=== PATIENT | female | born 1955 | race Caucasian/White ===

== ENCOUNTER 2022-02-27 07:48 | Emergency (ER) | payer MEDICARE, BC, SELFPAY ==
[2022-02-27 07:56] VITALS: BP 153/86; PULSE 70; RESP 18; TEMP 35.8; O2SAT 97; BMI 35.9
--- NOTE | 2022-02-27 08:53 | ED.GENADULT ---
HPI - General Adult General Time Seen by Provider: 08:53 Date Seen: 02/27/22 Chief complaint: Urogenital Problems, Female Stated complaint: Possible UTI Time Seen by Provider: 02/27/22 07:58 Source: patient Mode of arrival: ambulatory Limitations: no limitations History of Present Illness HPI narrative: Patient is a 66 white female who had a hysterectomy vaginally about [address] [facility], she had this done for endometrial polyps. The patient reports she recovered uneventfully this morning woke up and had dysuria dysuria to a small degree, and urinary frequency, with inability to fully empty her bladder. She believes she does have a catheter during the procedure 9 weeks ago, but has not had none recently. She has not had urinary tract infections in the past. She reports she is generally healthy. Her chart was reviewed. No flank pain, chills, rigors. Did notice some mild pinkish tinge to the urine. Related Data Home Medications Medication Instructions Recorded Confirmed lisinopril 10 mg tablet 10 mg PO DAILY 02/27/22 02/27/22 simvastatin 40 mg tablet 40 mg PO DAILY 02/27/22 02/27/22 Previous Rx's Medication Instructions Recorded nitrofurantoin 100 mg PO BID #10 cap 02/27/22 monohydrate/macrocrystals 100 mg capsule (Macrobid) Allergies Allergy/AdvReac Type Severity Reaction Status Date / Time No Known Drug Allergies Allergy Verified 02/27/22 08:00 Review of Systems Status of ROS: Reports: 6 or more systems reviewed and unremarkable except as noted in History and below PFSH PFS Social History Smoking Status: Never smoker Do you use any of these nicotine containing products: None Second hand tobacco smoke exposure: No How often do you have a drink containing alcohol: never AUDIT-C Alcohol total score: 0 Non-prescribed substance use: denies use Exam Narrative: Exam Narrative: Objective: In general patient apparent distress Abdomen is benign soft nontender No CVA tenderness Extremities show good perfusion Afebrile Const: Vital Signs, click to edit/add: Vital Signs - 24 hr 02/27/22 07:56 Temperature 96.5 F L Pulse Rate [Pulse Oximeter] 70 Respiratory Rate 18 Blood Pressure [Ri ght Upper Arm] 153/86 H Pulse Oximetry 97 Course Vital Signs Vital signs: Initial Vital Signs Temperature 96.5 F L 02/27/22 07:56 Temperature Source Temporal Artery Scan 02/27/22 07:56 Pulse Rate 70 02/27/22 07:56 Respiratory Rate 18 02/27/22 07:56 Blood Pressure 153/86 H 02/27/22 07:56 Blood Pressure Mean 108 02/27/22 07:56 Blood Pressure Position Supine 02/27/22 07:56 Pulse Oximetry 97 02/27/22 07:56 Oxygen Delivery Method 02/27/22 07:56 Vital Signs Temperature 96.5 F L 02/27/22 07:56 Pulse Rate 70 02/27/22 07:56 Respiratory Rate 18 02/27/22 07:56 Blood Pressure 153/86 H 02/27/22 07:56 Pulse Oximetry 97 02/27/22 07:56 Temperature 96.5 F L 02/27/22 07:56 Pulse Rate 70 02/27/22 07:56 Respiratory Rate 18 02/27/22 07:56 Blood Pressure 153/86 H 02/27/22 07:56 Pulse Oximetry 97 02/27/22 07:56 Medical Decision Making MDM Narrative Medical decision making narrative: The patient had hysterectomy vaginally about 9 weeks ago, likely had bladder catheterization. I think will collect a urinalysis but regardless I think a tree with antibiotics given that she has dysuria frequency inability to completely void. She has no vaginal bleeding, or evidence of postop complication. Will give her Rocephin IM, followed by Macrodantin 100 b.i.d. x7 days. She should follow up with regular doctor within the next 5-7 days as well, certainly sooner return here problems or concerns. Lab Data Labs: Lab Results 02/27/22 Range/Units 09:10 Urine Color Dark Yellow (Yellow) Urine Appearance Slightly Cloudy A (Clear) Urine pH 6.5 (5.0-8.5) Ur Specific Benson 1.025 (1.000-1.030) Urine Protein Negative (Negative) Urine Glucose (UA) Negative (Negative) Urine Ketones Negative (Negative) Urine Blood 3+ A (Negative) Urine Nitrite Negative (Negative) Urine Bilirubin Negative (Negative) Urine Urobilinogen 0.2 (0.2-1.0) Ur Leukocyte Esterase 1+ A (Negative) Urine RBC 25-50 A (0-2) Urine WBC 5-10 A (0-5) Ur Squamous Epith Cells Few (None-Few) Amorphous Sediment (None) Other Sediment (None) Urine Bacteria Few A (None) Urine Mucus (None) Discharge Plan Discharge Clinical Impression: Urinary tract infection Patient Disposition: Home, Self-Care Condition: Stable Instructions: Urinary Tract Infection in Women (ED) Activity Level: No Restrictions Discharge Diet: Regular Prescriptions: New nitrofurantoin monohyd/m-cryst [Macrobid] 100 mg capsule 100 mg PO BID Qty: 10 0RF Rx Instructions: must administer with a meal/food No Action lisinopril 10 mg tablet 10 mg PO DAILY 0RF simvastatin 40 mg tablet 40 mg PO DAILY 0RF Follow Up/Referrals: Salina Huerta MD [Primary Care Provider] - Stand Alone Forms: Quality System[employer] Info Instructions
[2022-02-27 09:24] LABS: Appearance Urine Slightly Cloudy (Clear); Bilirubin Urine Negative (Negative); Blood Urine 3+ (Negative); Glucose Urine Negative (Negative); Ketones Urine Negative (Negative); Leukocyte Esterase Urine 1+ (Negative); Nitrite Urine Negative (Negative); Protein Urine Negative (Negative); Specific Gravity Urine 1.025 (1.000-1.030); Urobilinogen Urine 0.2 (0.2-1.0); pH Urine 6.5 (5.0-8.5)
[2022-02-27 09:27] LABS: Bacteria Urine Few; Color Urine Dark Yellow (Yellow); RBC Urine 25-50 (0-2); Squamous Epithelial Cell Urine Few (None-Few)
[2022-02-27] MEDS: cefTRIAXone 500 MG VIAL IM (09:30)
== END 2022-02-27 09:36 | disposition home or self-care (01) ==
LOC: ED 09:11
PROVIDERS: Emergency Provider Family Medicine; PCP Family Medicine
DX: N39.0 Urinary tract infection, site not specified (principal)
CPT/HCPCS: 81001; 87086; 96372; 99283; 99284; J0696

== ENCOUNTER 2024-04-28 08:50 | Outpatient (CLI) | payer MEDICARE, BC, SELFPAY | END 2024-04-28 08:51 | disposition home or self-care (01) | LOC: NFLDREF 05-02 09:30 | PROVIDERS: PCP Family Medicine; Referring Provider Family Medicine; Visit Provider Nurse Practitioner Family | DX: N30.00 Acute cystitis without hematuria (principal) | CPT/HCPCS: 87086 ==

== ENCOUNTER 2025-01-18 09:53 | Outpatient (CLI) | payer MEDICARE, BC, SELFPAY | END 2025-01-18 09:54 | disposition home or self-care (01) | LOC: NFLDREF 01-21 06:45 | PROVIDERS: PCP Family Medicine; Referring Provider Family Medicine; Visit Provider Nurse Practitioner Family | DX: R30.0 Dysuria (principal); R39.15 Urgency of urination; N30.90 Cystitis, unspecified without hematuria | CPT/HCPCS: 87086 ==

== ENCOUNTER 2025-03-23 14:40 | Emergency (ER) | payer MEDICARE, BC, SELFPAY ==
--- OUTSIDE RECORDS SUMMARY | 2025-03-23 14:42 | XMS_ITS ---
Author Name Interface, [id number] lity Address [address] [address] [facility] Address [address] [place] [address] Allergies and Adverse Reactions Medication/Group Name Reaction Severity Date No known allergies Plan Date Type Value 02/01/2022 APPOINTMENT POST OP 30 MIN 01/11/2022 APPOINTMENT POST OP 30 MIN 12/31/2021 APPOINTMENT NEW PT CONSULT 3 0 MIN 12/24/2021 APPOINTMENT SURGERY 2 HR 12/24/2021 APPOINTMENT NEW PT CONSULT 3 0 MIN 11/09/2021 APPOINTMENT NEW PT CONSULT 3 0 MIN Reason for Visit POST OP 30 MIN Encounters Date Name 11/09/2021 Elevated CA 125 leve l 11/09/2021 Mass of pelvic struc ture (finding) 11/09/2021 Postmenopausal bleed ing (finding) Immunizations Date Name Route Dose Instructions Refusal Reason Stat us 05/18/2021 Flu vaccine - Adult C ompleted 11/19/20 Covid-19 vaccine ([place]) Completed Diagnostic Results Date Type Test Units Lower Limit Upper Limit Result Flag Comments Status Ordered By Specimen Source Lab Address 12/08 [facility] other lab See attache calero 12/21 [facility] other lab See attache calero Medications Date Name Route Dose Frequency Instructions Start Date End Date Status 07/25/20 21 Triamcinolone Topical Cream 0.025 % Topical 07/25/20 21 active 05/03/20 21 Simvastatin Oral Oral 40.0 mg 05/03/20 21 active 05/03/20 21 Lisinopril Oral Oral 10.0 mg 05/03/20 21 active Problems Diagnosis Status Date of Diagnosis Resolution Date Mass of pelvic structure (finding) Active Postmenopausal bleeding (finding) Active Elevated CA 125 level Active Vital Signs Date Type Value 11/09/2021 Weight 188.20 11/09/2021 Respiratory Rate 16.00 11/09/2021 Heart Beat 67.00 11/09/2021 Body Temperature 97.00 11/09/2021 BSA 1.88 11/09/2021 BMI 33.34 11/09/2021 Height 63.00 11/09/2021 Oxygen Saturation 98.00 11/09/2021 Pain Scale 0.00 11/09/2021 Intravascular Systolic 148 11/09/2021 Intravascular Diastolic 78 11/10/2021 BSA 1.88 11/10/2021 Weight 188.00 11/10/2021 Height 63.00 11/10/2021 BMI 33.30 01/11/2022 BSA 1.90 01/11/2022 BMI 34.08 01/11/2022 Height 63.00 01/11/2022 Weight 192.40 01/11/2022 Pain Scale 0.00 01/11/2022 Intravascular Systolic 124 01/11/2022 Intravascular Diastolic 76 01/11/2022 Oxygen Saturation 99.00 01/11/2022 Respiratory Rate 16.00 01/11/2022 Body Temperature 97.20 01/11/2022 Heart Beat 87.00 02/01/2022 Body Temperature 96.60 02/01/2022 Heart Beat 69.00 02/01/2022 Respiratory Rate 18.00 02/01/2022 Oxygen Saturation 99.00 02/01/2022 BSA 1.89 02/01/2022 Pain Scale 0.00 02/01/2022 Weight 190.40 02/01/2022 Height 63.00 02/01/2022 BMI 33.73 02/01/2022 Intravascular Systolic 128 02/01/2022 Intravascular Diastolic 80
--- OUTSIDE RECORDS SUMMARY | 2025-03-23 14:42 | XMS_ITS | Clinical Summary ---
Author Organization [facility] Address [address] [place] [id number] Care Team Providers Care Engineering Operator Name Role Phone Salina Huerta MD Primary Care Provider Allergies No known active allergies Medications calcium carbonate-cholecal ciferol, 600mg-200 units, (Calcium 600 + D,3,) tablet Take 1 Tablet by mouth two times daily with meals. Active simvastatin (ZOCOR) 40 mg tabletIndications: Hyperlipidemia, unspecified hyperlipidemia type Take 1 Tablet (40 mg) by mouth at bedtime. 90 Tablet 2 4 Active lisinopriL (PRINIVIL; ZESTRIL) 20 mg tabletIndications: Hypertension, unspecified type TAKE 1 TABLET BY MOUTH EVERY DAY 90 Tablet 2 5 Active triamcinolone 0.025 % creamIndications:E czema, unspecified type APPLY TOPICALLY TO AFFECTED AREA TWICE A DAY 80 g 2 5 Active Active Problems Problem Noted Date Diagnosed Date Routine adult health maintenance 05/28/2015 Overview (05/28/2015): Colonoscopy 05/2015 normal repeat in 10 years Vitamin D deficiency 12/26/2011 Syncope 04/26/2011 EKG abnormalities 04/26/[address] 04/26/2011 Unspecified essential hypertension Hyperlipidemia Immunizations Immunization Administration Dates Next Due COVID-19 vaccine (Moderna 100mcg/0.5mL) LULA VALLES 11/19/2020,10/22/2020 Hepatitis A (Adult) 06/03/2003 Influenza, IIV4 04/03/2020,04/24/2018 Influenza, IIV4 (=>6mos) MDV 05/21/2019,05/27/20 17 Influenza, Injectable, Mdck, Quadrivalent, W/preservative 05/18/2021 Pneumococcal Conj 20-valent (Prevnar 20) 023 Td (Age >=7 Years) 07/07/1995 Tdap 08/17/2018,08/06/2007 Zoster (Shingrix-RZV, recombinant) 07/05/2019, Family History Medical History Relation Name Comments Alcoholism Brother 1 Tra Other Brother 1 Tra sleep apnea Coronary artery disease Brother 3 Bill Coronary artery disease Brother 4 Bjorn Seizures Daughter Coronary artery disease Father Good Health Father Coronary artery disease Mother Diabetes Mother Heart Disease Mother Diagnosed age 75 Hypertension Mother Cancer-breast No Family History Cancer-ovarian No Family History Relation Name Status Comments Brother 1 Tra Alive Brother 2 Ceasar Alive Brother 3 Bill Alive Brother 4 Bjorn Alive Brother 5 Yuri Alive Daughter Father Maternal Grandfather (Age 70) CA D Maternal Grandmother gastric ca? Mother Paternal Grandfather alcohol ic Paternal Grandmother (Age 85) Sister Tia Alive Social History Tobacco Use Types Packs/Day Years Used Date Smoking Tobacco: Never Smokeless Tobacco: Never Tobacco Cessation:Counseling Given: Yes Alcohol Use Standard Drinks/Week Comments Yes 0 (1 standard drink = 0.6 oz pur e alcohol) 2 drinks per year PHQ-2 Answer Date Recorded PHQ-2 TOTAL SCORE 0 06/26/2023 Social Connections Answer Date Recorded Do you often feel lonely or isolated from those around you? 0 07/06/2024 Financial Resource Strain Answer Date R ecorded Difficulty of Paying Living Expenses 3 07/06/2024 Difficulty of Paying Living Expenses Not on file 07/06/2024 Food Insecurity Answer Date Recorded Do you worry your food will run out before you are able to buy more? 1 07/06/2024 Transportation Needs Answer Date Record ed Does lack of transportation keep you from medica l appointments? 1 07/06/2024 Does lack of transportation keep you from work, meetings or getting things that you need? 1 07/06/2024 Housing Stability Answer Date Recorded What is your housing situation today? 1 07/06/2024 Utilities Answer Date Recorded Do you have trouble paying f or utilities (for example, heat, electricity, water, phone)? 1 07/06/2024 Comments No Sex and Gender Information Value Date Recorded Sex Assigned at Female 04/06/2020 10:47 AM CDT Legal Sex Female 5:24 AM EXPELLER WORKER Gender Identity Female 04/06/2020 10:47 AM CDT Sexual Orientation Straight 04/06/2020 10 :47 AM CDT Occupation Industry Job Start Date Job End Date Not on file Not on file Not on file Not on file Obstetrics History Para Term AB IAB SAB Ectopic Multiple Livin g Live Births 5 3 3 0 2 0 2 0 0 3 Date Outcome GA Total Labor Labor/2nd/3rd Weight Sex Type Anes PTL Shayy A1 A5 Name Clin SAB SAB Term Term Term Comments 3 x Last Filed Vital Signs Vital Sign Reading Time Taken Comments Blood Pressure 111/74 07/11/2024 10:37 AM EXPELLER WORKER Pulse 72 07/11/2024 10:37 AM EXPELLER WORKER Temperature 36.9 C (98.5 F) 12/24/2021 6:30 PM CDT Respiratory Rate 18 12/24/2021 7:12 PM CDT Oxygen Saturation 96% 07/11/2024 10:37 AM EXPELLER WORKER Inhaled Oxygen Concentration - - Weight 85.5 kg (188 lb 9.6 oz) 07/11/2024 10:37 AM EXPELLER WORKER Height 153.7 cm (5' 0.5) 07/11/2024 10:37 AM CS T Body Mass Index 36.23 07/11/2024 10:37 AM EXPELLER WORKER Plan of Treatment Health Maintenance Due Date Last Done Comments COVID-19 vaccine series ( season) 2024 11/19/2020, 10/22/2020 Depression screening for age 12+ 06/26/2024 06/26/2023, 06/20/2022, 04/07/2020, Additional history exists Influenza Vaccine (#1) 2025 , 04/03/2020, 05/21/2019, Additional history exists Colonoscopy through age 75 05/28/202505/28, 05/28/2015, 06/03/2011, Additional history exists Mammogram for age 45-75 05/29/2025 05/29/20 24, 05/09/2023, 05/04/2022, Additional history exists BMI (ht and wt on same day) for age 18+ 07/11/2025 07/11/2024, 12/20/2023, 06/26/2023, Additional history exists Medicare Wellness for age 65+ 07/12/2025 07/11/2024, 06/26/2023, 06/20/2022 Tetanus booster 08/17/2028 08/17/2018, 07/09, 07/07/1995 Lipids for age 45-75 07/11/2029 07/11/2024, 06/26/2023, 07/19/2022, Additional history exists RSV vaccine for adults or (1 - 1-dose 75+ series) 2031 Zoster (shingles) series for age 50+ Completed 07/05/2019, 03/14/2019 Hepatitis C screening for age 18-79 Completed 04/07/2020 DEXA/DXA scan for age 65+ Completed 07/19/2022 Pneumococcal series for age 50+ Completed 06/26/2023 Hepatitis B series for 19+ Aged Out N o longer eligible based on patient's age to complete this topic Procedures Procedure Name Priority Date/Time Associated Diagnosis Comments LIPID PANEL W REFLEX MEASURED LDL Routine 07/11/2024 11:17 AM EXPELLER WORKER Hyperlipidemia, unspecified hyperlipidemia type XR MAMMO BILAT SCREENING Routine 05/29/2024 4:02 PM CDT Encounter for screening mammogram for malignant neoplasm of breast XR DXA BONE DENSITY 2 SITES AXIAL Routine 07/19/2022 10:50 AM EXPELLER WORKER Menopause ANTI HCV Routine 04/07/2020 3:05 PM CDT Need for hepatitis C screening test from Last 3 Months or Most Recently Relevant to Health Maintenance Results * LIPID PANEL W REFLEX MEASURED LDL (07/11/2024 11:17 AM EXPELLER WORKER) CHOLESTEROL, TOTAL 169 <200 mg/dL [facility] HDL CHOLESTEROL 76 > OR = 50 mg/dL [facility] TRIGLYCERIDES 144 <150 mg/dL [facility] LDL-CHOLESTEROL 70 mg/dL (calc) [facility] Comment: Reference range: <100 Desirable range <100 mg/dL for primary prevention; <70 mg/dL for patients with CHD or diabetic patients with > or = 2 CHD risk factors. LDL-C is now calculated using the Luis Felipe calculation, which is a validated novel method providing better accuracy than the Friedewald equation in the estimation of LDL-C. Ean SS et al. JASPREET. 2013;310(19): 0838-1780 (http://education.Symetis/faq/FEV540) CHOL/HDLC RATIO 2.2 <5.0 (calc) [facility] NON HDL CHOLESTEROL 93 <130 mg/dL (calc) [facility] Comment: For patients with diabetes plus 1 major ASCVD risk factor, treating to a non-HDL-C goal of <100 mg/dL (LDL-C of <70 mg/dL) is considered a therapeutic option. Blood BLOOD SPECIMEN / Unknown 07/11/2024 11:17 AM EXPELLER WORKER 07/11/2024 11:18 AM EXPELLER WORKER Salina Huerta MD CHEMISTRY Final R esult [facility] [address] [place] [address], [facility] [address] [place] [address] * XR MAMMO BILAT SCREENING (05/29/2024 4:02 PM CDT) Anatomical Region Laterality Modality BREASTS, Breast Left, Breast Right Bilateral Mammography Impressions 05/29/2024 4:05 PM CDT There is no radiographic evidence for malignancy. Recommend annual mammograms. MAMMOGRAM ASSESSMENT: ACR 1 Negative PATIENTS: You will also receive a letter with your examination results in an easy to read format. If you have questions about your results, please contact your referring provider. Narrative 05/29/2024 4:05 PM CDT For Patients: As a result of the Cures Act, medical imaging exams and procedure reports are released immediately into your electronic medical record. You may view this report before your referring provider. If you have questions, please contact your health care provider. XR MAMMO BILAT SCREENING [[id number]] CLINICAL HISTORY: This is an asymptomatic 68 y.o. patient. INDICATION FOR EXAM: Mammogram Screening. TECHNIQUE: CC & MLO views were obtained. This study was evaluated with the assistance of Computer-Aided Detection. COMPARISON FILM: Yes 05/09/23 [facility] 05/04/22 [facility] FINDINGS: The breasts are almost entirely fatty. There are no dominant masses, suspicious micro calcifications or areas of architectural distortion. us Salina Huerta MD MAMMO Final R esult * (ABNORMAL) XR DXA BONE DENSITY 2 SITES AXIAL [27053.1] (07/19/2022 10:50 AM EXPELLER WORKER) Anatomical Region Laterality Modality Spine, HIPS, HIPL, HIPR Other Impressions 07/20/2022 4:00 PM EXPELLER WORKER Osteopenia. RECOMMENDATIONS: The National Osteoporosis Foundation recommends pharmacologic treatment for patients with T-scores of -2.5 or less, patients with prior history of fragility fractures, or patients with 10-year probability of greater than 3% at hips or greater than 20% of suffering major osteoporotic fractures. Recommend continued optimization of calcium and vitamin D intake through dietary means and/or supplementation and regular exercise. Repeat scan recommended in 3-5 years. Negin Keene PA-C [facility] 07/20/2022 Narrative 07/20/2022 4:00 PM EXPELLER WORKER For Patients: Results are automatically released to your [email or web address] ([employer]) account once available, in compliance with federal regulations. This means that you may see your results before your provider has had a chance to review them. Please allow 2-3 business days for your provider to comment on the results. XR DXA Bone Mineral Density (BMD) EXAM LOCATION: [address] [address] PATIENT NAME: Mahnaz Keita DATE OF : 1955 EXAM DATE: 07/19/2022 REQUESTING PROVIDER: Salina Huerta MD GENDER AT : female HEIGHT: 5' 0.71 (06/20/2022) WEIGHT: 193 lb 12.8 oz (06/20/2022) MENOPAUSAL STATUS: Postmenopausal RACE/ETHNICITY: White RISK FACTORS: White Race CURRENT MEDICATION FOR BONE LOSS: NONE INDICATION: Initial scan for screening and Post-Menopause COMPARISON DATE(S): None DXA scans are compared to prior studies for a patient only when the two (or more) studies were performed on the same scanner. It is not possible to compare data generated on one scanner to data from another because there are not standards in DXA equipment. This applies even if the two scanners are made by the same set key driver. PROCEDURE: Dual-energy x-ray absorptiometry performed with routine technique. Reporting is completed in the form of a T-score. The T-score represents the standard deviation from peak bone mass based on young healthy adult. A Z-score is used for diagnosis in premenopausal women, and for men under the age of 50. FINDINGS: RESULT LUMBAR SPINE L2 - L4 BMD: 1.356 g/cm2 T-Score: + 1.1 Z-Score: + 2.0 Change from prior: None RESULTS FEMUR Left femoral neck BMD: 0.905 g/cm2 T-Score: - 1.0 Z-Score: + 0.1 Change from prior: None Right femoral neck BMD: 0.891 g/cm2 T-Score: - 1.1 Z-Score: + 0.0 Change from prior: None Left hip BMD: 1.121 g/cm2 T-Score: + 0.9 Z-Score: + 1.6 Change from prior: None Right hip BMD: 1.080 g/cm2 T-Score: + 0.6 Z-Score: + 1.3 Change from prior: None WHO criteria: Normal: T-score at or above -1 SD Osteopenia: T-score between -1.1 and -2.4 SD Osteoporosis: T-score at or below -2.5 SD FRAX RISK CALCULATION (USED FOR OSTEOPENIA ONLY): 10-year probability of major osteoporotic fracture: 7.5%. 10-year probability of hip fracture: 0.6%. us Salina Huerta MD DEXA Final R esult * ANTI HCV (04/07/2020 3:05 PM CDT) HEPATITIS C ANTIBODY Non-React josiane Non-React josiane 04/07/2020 9:10 PM CDT [facility] Comment:Antibodies to HCV no t detected; does not exclude the possibility of exposure to HCV. Blood BLOOD SPECIMEN / Unknown Venipuncture / Unknown 04/07/2020 3:05 PM CDT 04/07/2020 3:05 PM CDT us Salina Huerta MD SEND OUTS Final R esult [facility] [address] [place] [address], from Last 3 Months or Most Recently Relevant to Health Maintenance Insurance MEDICARE PART B HB ONLY MEDICARE PART A HB ONLY [employer] PB ONLY [phone] (Work) [id number] [place] [id number] [facility] [employer] INS Advance Directives Documents on File Type Date Recorded Patient Presto Log Operator Expl anation Healthcare Directive 12/24/2021 10:54 AM Healthcare Directive 04/05/2021 7:24 AM * Full Code (Latest Code Status on File) Date Activated Date Inactivated Comments 04/26/2011 5:22 PM 04/27/2011 8:34 PM Care Teams Engineering Operator Relationship Specialty Start Date End Date Salina Huerta MD [address] [address] PCP - General Family Practice 10/14/10
--- OUTSIDE RECORDS SUMMARY | 2025-03-23 14:42 | XMS_ITS | CCD ---
Author Name Interface, [id number] lity Address [address] [address] [facility] Address [address] [place] [address] Care Team Providers Care Caregiver Services Home Name Role Phone Padmini Verdin MD Unavailable Unavailable Allergies and Adverse Reactions Medication/Group Name Reaction Severity Date No known allergies Reason for Visit POST OP 30 MIN Medications Date Name Route Dose Frequency Instructions Start Date End Date Status 022 Clobetasol Topical Ointment 0.05 % 022 inactive 021 Triamcinolone Topical Cream 0.025 % Topical 021 active 021 Simvastatin Oral Oral 40.0 mg 021 active 021 Lisinopril Oral Oral 10.0 mg 021 active 011 Cholecalciferol Oral Oral 1.0 {capsul e} 011 inactive Problems Diagnosis Status Date of Diagnosis Resolution Date Mass of pelvic structure (finding) Active Postmenopausal bleeding (finding) Active Elevated CA 125 level Active Social History Date Name Value 01/06/2022 Sex Female
--- OUTSIDE RECORDS SUMMARY | 2025-03-23 14:42 | XMS_ITS ---
Author Name Interface, [id number] lity Address [address] [facility] [address] [facility] [address] [address] [facility] Address [address] [address] Allergies and Adverse Reactions Medication/Group Name Reaction Severity Date No known allergies Plan Date Type Value 02/01/2022 APPOINTMENT POST OP 30 MIN Reason for Visit POST OP 30 MIN Encounters Date Name 02/01/2022 Mass of pelvic struc ture (finding) Medications Date Name Route Dose Frequency Instructions [...] level Active Vital Signs Date Type Value 02/01/2022 Body Temperature 96.60 02/01/2022 Heart Beat 69.00 02/01/2022 Respiratory Rate 18.00 02/01/2022 Oxygen Saturation 99.00 02/01/2022 BSA 1.89 02/01/2022 Pain Scale 0.00 02/01/2022 Weight 190.40 02/01/2022 Height 63.00 02/01/2022 BMI 33.73 02/01/2022 Intravascular Systolic 128 02/01/2022 Intravascular Diastolic 80
[2025-03-23 14:48] VITALS: BP 135/80; PULSE 66; RESP 16; TEMP 36.5; O2SAT 96; BMI 35.9
--- NOTE | 2025-03-23 15:20 | ED.GENADULT ---
HPI - General Adult General Date Seen: 03/23/25 Chief complaint: Extremity Pain/Injury, Lower Stated complaint: Lft Leg Calf and Thigh Pain Time Seen by Provider: 03/23/25 15:19 History of Present Illness HPI narrative: 69-year-old female presenting to the ER today with pain in the back of her left leg. Pain began yesterday. No history of blood clots or DVT. Patient took ibuprofen yesterday but was not helpful. She was noted with sleep last night. There very limited medical records in the [facility] system. It looks like she does have medical records through the [facility] care link. According to his medical record she has history hypertension, hyperlipidemia, syncope. She is on lisinopril and simvastatin. According to her annual checkup note from July 2024 she has a family history of coronary artery disease. She is presenting to the ER today with atraumatic pain involving her left posterior distal hamstring, left posterior knee, and left calf. She does have a fairly active lifestyle and was actually out m[place] lawn in the ditch 4 days ago on Monday but does not recall any specific injury or twisting to her knee. She was also ambulatory in the following days on , Monday. Beginning yesterday she started having severe pain in the back of her leg. It got so bad that she had to walk with a walker, which is something that she never has to use. She does not have any pain in her hip or in her ankle. No swelling in her leg. No redness or pallor or discoloration. No numbness or weakness. She took some ibuprofen yesterday morning and evening with only minimal relief. She had trouble sleeping due to the pain but notes that her leg hurts mostly when she tries to flex the knee and is better when she keeps her leg straight. Related Data Home Medications ?Medication ?Instructions ?Recorded ?Confirmed simvastatin 40 mg tablet 40 mg PO DAILY 02/27/22 03/23/25 triamcinolone acetonide 0.025 % 1 applic topical BID 06/12/23 01/18/25 topical cream lisinopril 10 mg tablet 20 mg PO DAILY 01/18/25 03/23/25 Previous Rx's ?Medication ?Instructions ?Recorded hydrocodone 5 mg-acetaminophen 325 1 tab PO Q6H PRN pain #10 tabs 03/23/25 mg tablet Allergies Allergy/AdvReac Type Severity Reaction Status Date / Time No Known Drug Allergies Allergy Verified 01/18/25 09:06 [facility] Medical History (Updated 03/23/25 @ 17:29 by Mike Bearden MD) Contact dermatitis and eczema due to plant ?L24.7 - Irritant contact dermatitis due to plants, except food (ICD-10) Hypertension ?I10 - Essential (primary) hypertension (ICD-10) Hyperlipidemia ?E78.5 - Hyperlipidemia, unspecified (ICD-10) Social History Smoking Status: Never smoker Do you use any of these nicotine containing products: None Second hand tobacco smoke exposure: No How often do you have a drink containing alcohol: never AUDIT-C Alcohol total score: 0 Non-prescribed substance use: denies use Exam Narrative: Exam Narrative: Constitutional: Appears well-developed and well-nourished. Active. Non-toxic appearing. HENT: Head: Atraumatic. No signs of injury. Nose: No nasal discharge. Mouth/Throat: Mucous membranes are moist. Pharynx is normal. Tonsils symmetric. Uvula midline. Airway patent. Eyes: Conjunctivae normal and EOM are normal. Pupils are equal, round, and reactive to light. Right eye exhibits no discharge. Left eye exhibits no discharge. No icterus. Neck: Normal range of motion. Neck supple. No adenopathy. No stridor. Cardiovascular: Normal rate and regular rhythm. No murmur heard. No murmurs, rubs, or gallops. Brisk capillary refill Pulmonary/Chest: Effort normal. No stridor. No respiratory distress. No wheezes.No rhonchi. No rales. No retractions. Abdominal: Soft. Bowel sounds are normal. No distension. No mass. There is no tenderness. There is no rebound and no guarding. Musculoskeletal: Right lower extremity-Normal range of motion in her right hip, knee, ankle.,. No edema. No tenderness. No deformity. Pelvis and lumbar spine and hips are nontender. Left lower extremity-normal range of motion in her hip. Normal inspection of her thigh and femur. No redness or swelling or warmth. She is tender to palpation on the distal 1/3 of her hamstrings and posterior femur. No bruising or swelling there. Normal inspection of the knee. No swelling. No joint effusion. No redness. No bruising. No deformity. Range of motion is from full extension to about 30? of flexion, limited by posterior pain. Ligamentous exam is limited by muscular guarding but is negative for any obvious ligamentous laxity of ACL, LCL, PCL, MCL. Calf is nontender. No palpable cords. Achilles nontender. Tibia and fibula nontender. Ankle and foot nontender. Strong PT and DP pulse. Normal brisk cap refill. Neurological: Alert. Normal strength. No cranial nerve deficit or sensory deficit. Coordination normal. GCS eye subscore is 4. GCS verbal subscore is 5. GCS motor subscore is 6. Skin: Skin is warm. No rash noted. Const: Vital Signs, click to edit/add: Vital Signs - 24 hr 03/23/25 14:48 Temperature 97.7 F Pulse Rate [Pulse Oximeter] 66 Respiratory Rate 16 Blood Pressure [Ri ght Upper Arm] 135/80 Pulse Oximetry 96 Oxygen Delivery Me thod Room Air Course Vital Signs Vital signs: Initial Vital Signs Temperature 97.7 F 03/23/25 14:48 Temperature Source Temporal Artery Scan 03/23/25 14:48 Pulse Rate 66 03/23/25 14:48 Respiratory Rate 16 03/23/25 14:48 Blood Pressure 135/80 03/23/25 14:48 Blood Pressure Mean 98 03/23/25 14:48 Pulse Oximetry 96 03/23/25 14:48 Oxygen Delivery Method Room Air 03/23/25 14:48 Vital Signs Temperature 97.7 F 03/23/25 14:48 Pulse Rate 66 03/23/25 14:48 Respiratory Rate 16 03/23/25 14:48 Blood Pressure 135/80 03/23/25 14:48 Pulse Oximetry 96 03/23/25 14:48 Oxygen Delivery Method Room Air 03/23/25 14:48 Temperature 97.7 F 03/23/25 14:48 Pulse Rate 66 03/23/25 14:48 Respiratory Rate 16 03/23/25 14:48 Blood Pressure 135/80 03/23/25 14:48 Pulse Oximetry 96 03/23/25 14:48 Oxygen Delivery Method Room Air 03/23/25 14:48 Medications Administered Medications: Discontinued Medications Generic Name Dose Route Start Last Admin Trade Name Freq PRN Reason Stop Dose Admin Ibuprofen 600 mg 03/23/25 16:00 03/23/25 16:10 Ibuprofen 200 Mg Tablet PO 03/23/25 16:01 600 mg ONCE ONE Administration Medical Decision Making MDM Narrative Medical decision making narrative: Very pleasant 69-year-old female presenting to the ER today with atraumatic pain involving her left posterior distal hamstring, left posterior knee, and left calf. She does have a fairly active lifestyle and was actually out mowing the lawn in the ditch 4 days ago on Monday but does not recall any specific injury or twisting to her knee. She was also ambulatory in the following days on , Monday. Beginning yesterday she started having severe pain in the back of her leg. It got so bad that she had to walk with a walker, which is something that she never has to use. She does not have any pain in her hip or in her ankle. No swelling in her leg. No redness or pallor or discoloration. No numbness or weakness. She took some ibuprofen yesterday morning and evening with only minimal relief. She had trouble sleeping due to the pain but notes that her leg hurts mostly when she tries to flex the knee and is better when she keeps her leg straight. The differential is broad. There is no evidence for acute limb ischemia. No associated low back pain or numbness or weakness in the leg to suggest a lumbar radiculopathy. No signs of skin redness to suggest cellulitis or other deep infection such as abscess or necrotizing infection. Ultrasound is negative for DVT. X-rays are negative for any acute fracture affecting the distal femur, knee joint, or proximal tibia/fibula. Ligamentous exam is negative for any obvious ligament laxity but concern is for potential sprain or soft tissue injury of the knee. Although the patient reports that the pain is from her posterior distal thigh all the way down to the posterior calf, it is mostly in the knee. She feels like her pain is moderately well controlled after ibuprofen but will accept a prescription for Milton. Opiate precautions reviewed. She already, crutches, walker and adaptive equipment at home. Would recommend close outpatient follow-up with [facility] for her pain. Precautions for return to the ER reviewed. Imaging Data XR L knee: Attestation: I have reviewed the pertinent imaging results. Radiologist's impression: Findings/Impression: No acute osseous abnormality. No fracture. Mild medial compartment and lateral compartment joint space narrowing. Trace knee joint effusion. Findings/Impression: No acute osseous abnormality. No fracture. Mild medial compartment and lateral compartment joint space narrowing. Trace knee joint effusion. US venous LLE: Attestation: I have reviewed the pertinent imaging results. Radiologist's impression: IMPRESSION: Normal venous ultrasound exam. No evidence of deep vein thrombosis within the left lower extremity. Discharge Plan Discharge Clinical Impression: Acute pain of left knee Patient Disposition: Home, Self-Care Condition: Stable Instructions: Knee Pain (ED) Additional Instructions: As we discussed, return to the ER right away if you have worsening or uncontrolled pain, new symptoms such as redness or swelling of your knee, swelling of your leg, fever, or if you have any problems. Please call [phone] tomorrow to schedule an ER follow-up visit with the [facility]. Use your walker or your knee immobilizer whenever up and around to help support your knee and prevent pain. You can use ibuprofen or Tylenol if needed for pain. Use the prescription pain killer (Milton) if needed for pain uncontrolled by other medications. Use caution because Milton can cause dizziness, drowsiness, constipation, and can be addictive. Prescriptions: New hydrocodone-acetaminophen 5-325 mg tablet 1 tab PO Q6H PRN (Reason: pain) Qty: 10 0RF No Action triamcinolone acetonide 0.025 % cream 1 applic topical BID simvastatin 40 mg tablet 40 mg PO DAILY lisinopril 10 mg tablet 20 mg PO DAILY Follow Up/Referrals: Salina Huerta MD [Primary Care Provider, Family Practice] Stand Alone Forms: [facility] Info Instructions
--- NOTE | 2025-03-23 15:37 | CRLHL7_ITS ---
For Patients: As a result of the Cures Act, medical imaging exams and procedure reports are released immediately into your electronic medical record. You may view this report before your referring provider. If you have questions, please contact your health care provider. Indication: Left knee pain Technique: Two views of left knee Comparison: None. Findings/Impression: No acute osseous abnormality. No fracture. Mild medial compartment and lateral compartment joint space narrowing. Trace knee joint effusion. Dictated by Cornel Giron MD @ 03/23/2025 4:43:45 PM (Electronically Signed)
--- NOTE | 2025-03-23 15:37 | CRLHL7_ITS ---
For Patients: As a result of the Century Cures Act, medical imaging exams and procedure reports are released immediately into your electronic medical record. You may view this report before your referring provider. If you have questions, please contact your health care provider. INDICATION: Left posterior thigh and calf and knee pain COMPARISON: None. TECHNIQUE: A compression venous ultrasound exam was performed of the left lower extremity using weiss-scale imaging, color Doppler and spectral Doppler analysis. FINDINGS: Sonographic imaging of the left lower extremity demonstrates normal compressibility and color Doppler venous blood flow within the common femoral vein, deep femoral vein, and the proximal greater saphenous vein. Within the thigh, the femoral vein is patent and compressible. At a lower level, the popliteal and posterior tibial veins also show normal compressibility and color Doppler venous blood flow. Limited imaging of the contralateral groin demonstrates a normal spectral waveform and color Doppler venous blood flow within the right common femoral vein. IMPRESSION: Normal venous ultrasound exam. No evidence of deep vein thrombosis within the left lower extremity. Dictated by Bill Ramírez MD @ 03/23/2025 4:42:36 PM (Electronically Signed)
[2025-03-23] MEDS: IBUPROFEN 200 MG TABLET 600 MG PO (16:10)
--- OUTSIDE RECORDS SUMMARY | 2025-03-23 16:15 | XMS_ITS ---
Author Name Interface, [id number] lity Address [address] [facility] [address] [address] [facility] Address [address] [facility] [address] [address] Allergies and Adverse Reactions Medication/Group Name Reaction [...]
--- OUTSIDE RECORDS SUMMARY | 2025-03-23 16:15 | XMS_ITS | CCD ---
Author Name Interface, [id number] lity Address [address] [facility] [address] [address] [facility] Address [address] [facility] [address] [place] [address] Care Team Providers Care Solar Sales Advisor Name Role Phone Padmini Verdin MD Unavailable [...]
--- OUTSIDE RECORDS SUMMARY | 2025-03-23 16:15 | XMS_ITS ---
Author Name Interface, [id number] lity Address [address] [place] [address] [address] [place] [address] [facility] Address [facility] [address] [address] Allergies and Adverse Reactions Plan Reason for Visit Encounters Immunizations Diagnostic Results Medications Problems Vital Signs
--- OUTSIDE RECORDS SUMMARY | 2025-03-23 16:15 | XMS_ITS ---
Author Name Interface, [id number] lity Address [address] [facility] [address] [address] [facility] Address [address] [facility] [address] [address] Allergies and Adverse Reactions Medication/Group Name Reaction [...]
--- OUTSIDE RECORDS SUMMARY | 2025-03-23 16:15 | XMS_ITS | CCD ---
Author Name Interface, [id number] lity Address [address] [facility] [address] [place] [address] [facility] Address [facility] [address] [address] Care Team Providers Care Ditto Machine Operator Name Role Phone Padmini Verdin MD Unavailable Unavailable Allergies and Adverse Reactions Reason for Visit Medications Problems Social History
--- OUTSIDE RECORDS SUMMARY | 2025-03-23 16:15 | XMS_ITS ---
Author Name Interface, [id number] lity Address [address] [place] [address] [address] [place] [address] [facility] Address [facility] [address] Allergies and Adverse Reactions Plan Reason for Visit Encounters Immunizations Diagnostic Results Medications Problems Vital Signs
== END 2025-03-23 17:33 | disposition home or self-care (01) ==
PROVIDERS: Emergency Provider Emergency Medicine; PCP Family Medicine
DX: M25.562 Pain in left knee (principal)
CPT/HCPCS: 73560; 93971; 99283; A9270

== ENCOUNTER 2025-07-01 08:31 | Outpatient (CLI) | payer MEDICARE, BC, SELFPAY ==
--- NOTE | 2025-07-01 10:01 | P.ANES_ITS ---
Anesthesia Charges Start Date/Time Anesthesia Start Date: 07/01/25 Anesthesia Start Time: 09:33 Stop Date/Time Anesthesia Stop Date: 07/01/25 Anesthesia Stop Time: 09:58 Coding CPT Codes CPT Codes: CECILIA LWR INTST NDSC NOS - 26408 ([id number]) P2 - PATIENT W/MILD SYST DISEASE, QK - STRETCHER HELPER 2-4 CNCRNT ANES PROC, QX - PHOTOGRAPHIC EQUIPMENT TECHNICIAN SVC W/ MD MED DIRECTION
--- NOTE | 2025-07-01 10:01 | W.ANESCHARGE ---
Anesthesia Charges Start Date/Time Anesthesia Start Date: 07/01/25 Anesthesia Start Time: 09:33 Stop Date/Time Anesthesia Stop Date: 07/01/25 Anesthesia Stop Time: 09:58 Coding CPT Codes CPT Codes: CECILIA LWR INTST NDSC NOS - 10298 ([id number]) P2 - PATIENT W/MILD SYST DISEASE, QK - TRANSACTION MANAGER 2-4 CNCRNT ANES PROC, QX - RADIO PROGRAM DIRECTOR SVC W/ MD MED DIRECTION
--- NOTE | 2025-07-01 11:35 | P.ANES_ITS ---
Anesthesia Charges Start Date/Time Anesthesia Start Date: 07/01/25 Anesthesia Start Time: 09:33 Stop Date/Time Anesthesia Stop Date: 07/01/25 Anesthesia Stop Time: 09:58 Coding CPT Codes CPT Codes: CECILIA LWR INTST NDSC NOS - 53259 ([id number]) P2 - PATIENT W/MILD SYST DISEASE, QK - MELT ROOM OPERATOR 2-4 CNCRNT ANES PROC, QX - RUG LAYER SVC W/ MD MED DIRECTION
--- NOTE | 2025-07-01 11:35 | W.ANESCHARGE ---
Anesthesia Charges Start Date/Time Anesthesia Start Date: 07/01/25 Anesthesia Start Time: 09:33 Stop Date/Time Anesthesia Stop Date: 07/01/25 Anesthesia Stop Time: 09:58 Coding CPT Codes CPT Codes: CECILIA LWR INTST NDSC NOS - 66726 ([id number]) P2 - PATIENT W/MILD SYST DISEASE, QK - SOFTWARE PROGRAM MANAGER 2-4 CNCRNT ANES PROC, QX - GARAGE SUPERVISOR SVC W/ MD MED DIRECTION
== END 2025-07-01 08:32 | disposition home or self-care (01) ==
LOC: OP CLINIC 08:31
PROVIDERS: PCP Family Medicine; Visit Provider Internal Medicine
DX: Z12.11 Encounter for screening for malignant neoplasm of colon (principal); K57.30 Diverticulosis of large intestine without perforation or abscess without bleeding
CPT/HCPCS: 00811; 00812; 45378; J2704